=== PATIENT | female | born 1935 | race Two or more races ===

== ENCOUNTER 2019-09-28 03:21 | Inpatient (IN) | payer MEDICARE, OTHER ==
[2019-09-28] VITALS (13 sets, daily range): BP systolic 143–190; BP diastolic 40–122
[~2019-09-28] VITALS: Ht 152.4 cm; Wt 69.0 kg
[~2019-09-28 03:21] MED LIST: AMLO10TA4 PO; BENA20TA9 PO; DULO30CA2 PO; ESOM40CA PO; HYDR-4077 PO; METF500T PO; SITA50TA PO
--- NOTE | 2019-09-28 03:25 | NUR ---
PT BIBA AND SON TO THE ED C/O SOB. PT AAOX3, TACHYPNEIC, BILATERAL WHEEZING UPON AUSCULTATION NOTED, SATTING 89% ON RA, PLACED ON O2 4 L N/C. PT CONNECTED TO THE INSTRUCTIONAL WRITER AND POX
--- NOTE | 2019-09-28 03:25 | NUR ---
Note betty in EDM - 09/28/19 at 0402 by SANTOS PT BIBAON TO THE ED C/O SOB. PT AAOX3, TACHYPNEIC, BILATERAL WHEEZING UPON AUSCULTATION NOTED, SATTING 89% ON RA, PLACED ON O2 4 L N/C. PT CONNECTED TO THE UNIT COORDINATOR AND POX
--- NOTE | 2019-09-28 04:00 | NUR ---
BLOOD COLLECTED AND SENT TO LAB
[2019-09-28] MEDS ORDERED: ALBUTEROL FS 2.5 MG/3 ML VIAL.NEB ONE (04:15)
[2019-09-28] MEDS ORDERED: IPRATROPIUM NEB FS 0.5 MG/2.5 ML AMPUL.NEB ONE (04:15)
--- NOTE | 2019-09-28 04:20 | NUR ---
URINE COLLECTED AND SENT TO LAB
[2019-09-28] MEDS ORDERED: ALBUTEROL FS 2.5 MG/3 ML VIAL.NEB NEB ONE (04:30)
[2019-09-28] MEDS ORDERED: IPRATROPIUM NEB FS 0.5 MG/2.5 ML AMPUL.NEB NEB ONE (04:30)
--- NOTE | 2019-09-28 04:42 | NUR ---
CALLED [facility] FOR CXR RESULT READ
[2019-09-28 05:02] LABS: BASOPHILS % (AUTO) 0.8 % (0.0-2.0); EOSINOPHILS % (AUTO) 1.6 % (0.0-6.0); HEMATOCRIT 25 % (33-45); LYMPHOCYTES % (AUTO) 22.4 % (20.0-44.0); MEAN CORPUSCULAR HGB CONC 32 g/dl (31.0-36.0); MEAN CORPUSCULAR VOLUME 101 fL (82-100); MONOCYTES % (AUTO) 6.8 % (2.0-12.0); NEUTROPHILS % (AUTO) 68.4 % (43.0-81.0); PLATELET COUNT (AUTO) 226 /CMM (150-450); RED BLOOD CELL COUNT(AUTO) 2.47 MIL/uL (4.0-5.2); WHITE BLOOD COUNT (AUTO) 8.2 K/uL (4.3-11.0)
[2019-09-28 05:03] LABS: BASOPHILS # (AUTO) 0.1 /CMM (0.0-0.2); LYMPHOCYTES # (AUTO) 1.8 /CMM (0.8-4.8); MONOCYTES # (AUTO) 0.6 /CMM (0.1-1.30); NEUTROPHILS # (AUTO) 5.6 /CMM (1.8-8.9)
[2019-09-28 05:06] LABS: BILIRUBIN,URINE SMALL (NEGATIVE); BLOOD, URINE Negative Ery/uL (NEGATIVE); COLOR,URINE Yellow (YELLOW); KETONES,URINE 15 (NEGATIVE); LEUKOCYTE ESTERASE ,URINE Negative (NEGATIVE); NITRITE, URINE Negative (NEGATIVE); PROTEIN,URINE 30 mg/dl (NEGATIVE); UGLUCOSE Negative (NEGATIVE); UROBILINOGEN,URINE 0.2 EU/dL (0.2)
[2019-09-28 05:11] LABS: ALANINE AMINOTRANSFERASE 24 U/L (12-78); ALBUMIN 3.3 g/dL (3.4-5.0); ALKALINE PHOSPHATASE 168 U/L (46-116); ASPARTATE AMINOTRANSFERASE 26 U/L (15-37); BILIRUBIN,DIRECT 0.1 mg/dL (0.0-0.2); BILIRUBIN,TOTAL 0.3 mg/dL (0.2-1.0); CALCIUM, SERUM 8.3 mg/dL (8.5-10.1); CARBON DIOXIDE 19 mmol/L (21-32); CHLORIDE 105 mmol/L (98-107); CREATININE 2.6 mg/dL (0.6-1.3); GLUCOSE 162 mg/dL (74-106); SODIUM SERUM 134 mmol/L (136-145); TOTAL PROTEIN, SERUM 6.9 g/dL (6.4-8.2); UREA NITROGEN, BLOOD 58 mg/dL (7-18)
--- NOTE | 2019-09-28 05:13 | NUR ---
COVID SWAB COLLECTED AND SENT TO LAB
[2019-09-28 05:18] LABS: POTASSIUM 6.9 mmol/L (3.5-5.1)
[2019-09-28 05:36] LABS: APPEARANCE,URINE HAZY (CLEAR)
[2019-09-28] MEDS ORDERED: SODIUM BICARBONATE SYR 50 MEQ/50 ML DISP.SYRIN ONE (05:48)
[2019-09-28] MEDS ORDERED: CALCIUM CHLORIDE 1,000 MG/10 ML DISP.SYRIN ONE (05:48)
[2019-09-28] MEDS ORDERED: SODIUM POLYSTYRENE SULFONATE 15 G/60 ML BOTTLE ONE (05:48)
[2019-09-28] MEDS ORDERED: INSULIN REGULAR, HUMAN 100 UNIT/ML 10 ML VIAL ONE (05:48)
[2019-09-28 05:50] LABS: BACTERIA,URINE None seen /HPF (None Seen); RBC,URINE 0-2 /HPF (0-2); SQUAMOUS EPITHELIAL CELL,UR Few /HPF (None Seen); URINE AMORPHOUS URATE Moderate /HPF (None Seen); WBC,URINE 0-2 /HPF (0-3)
[2019-09-28] MEDS ORDERED: DEXTROSE 50%-WATER 50 ML DISP.SYRIN ONE (05:51)
[2019-09-28] MEDS ORDERED: FUROSEMIDE 40 MG/4 ML VIAL ONE (05:59)
[2019-09-28] MEDS ORDERED: FUROSEMIDE 20 MG/2 ML VIAL ONE (05:59)
[2019-09-28] MEDS ORDERED: INSULIN REGULAR, HUMAN 100 UNIT/ML 10 ML VIAL IV ONE (06:00)
[2019-09-28] MEDS ORDERED: CALCIUM CHLORIDE 1,000 MG/10 ML DISP.SYRIN IV ONE (06:00)
[2019-09-28] MEDS ORDERED: SODIUM BICARBONATE SYR 100 MEQ in IV D5W 1,000 ML IV ONE (06:00)
[2019-09-28] MEDS ORDERED: SODIUM POLYSTYRENE SULFONATE 15 G/60 ML BOTTLE PO ONE (06:00)
[2019-09-28] MEDS ORDERED: DEXTROSE 50%-WATER 50 ML DISP.SYRIN IV ONE (06:00)
--- NOTE | 2019-09-28 06:00 | NUR ---
PT WAS SEEN BY DR IGLESIA LEE
--- NOTE | 2019-09-28 06:14 | NUR ---
patient is changed into a clean gown. warm blankets given for comfort.
--- NOTE | 2019-09-28 06:19 | NUR ---
RT PT PLACED ON BIPAP W/ NOTED SETTING PER MD ORDERS. PT TOLERATING SETTING WELL. NO SOB OR DISTRESS NOTED. ALARMS SET AUDIBLE. AMBU BAG AT HOB. CONTINUE CURRENT CARE PLAN AND MONITOR FOR ANY CHANGES. Addendum: 09/28/19 at 0621 by AZ WALTER RT Amended: Links added.
[2019-09-28] MEDS ORDERED: FUROSEMIDE 20 MG/2 ML VIAL IV ONE (06:30)
--- NOTE | 2019-09-28 06:32 | NUR ---
BIPAP SETTINGS: RATE:14 bpm Fraction of Inspired Oxygen (FiO2): 40 % IPAP: 15 EPAP:5
--- NOTE | 2019-09-28 06:54 | NUR ---
BED ASSIGNMENT [id number]
--- NOTE | 2019-09-28 07:10 | NUR ---
ATTEMPTED TO GIVE REPORT, NURSE NOT AVAILABLE
[2019-09-28] MEDS ORDERED: BUMETANIDE INJ 6 MG in IV NS 0.9% 36 ML IV ONE (07:30)
[2019-09-28] MEDS ORDERED: ONDANSETRON HCL/PF 4 MG/2 ML VIAL IVP PRN (07:30)
[2019-09-28] MEDS ORDERED: PANTOPRAZOLE 40 MG TABLET.DR PO SCH (07:30)
[2019-09-28] MEDS ORDERED: ACETAMINOPHEN 325 MG TABLET PO PRN (07:30)
[2019-09-28] MEDS ORDERED: Z GUARD REMEDY 2 OZ OINT TP PRN (07:30)
[2019-09-28] MEDS ORDERED: ZOLPIDEM TARTRATE 5 MG TABLET PO PRN (07:30)
--- NOTE | 2019-09-28 07:43 | NUR ---
REPORT GIVEN TO SCOTT RIVAS
[2019-09-28] MEDS ORDERED: BENAZEPRIL HCL 20 MG TABLET PO SCH (09:00)
[2019-09-28] MEDS ORDERED: hydrALAZINE HCL 50 MG TABLET PO SCH (09:00)
[2019-09-28] MEDS: hydrALAZINE HCL 50 MG TABLET PO SCH ×4 (09:00→16:12)
[2019-09-28 09:29] LABS: ABG BASE EXCESS -7.4 mmol/L; ABG OXYGEN SATURATION 99.6 % (92.0-98.5); ABG PCO2 33.5 mmHg (35.0-45.0); ABG PH 7.339 (7.350-7.450); ABG PO2 310.1 mmHg (75.0-100.0); AaDO2 225.1 mmHg; COHb 0.3 % (0.5-1.5); MetHb 0.2 % (0.0-1.5); O2Hb 99.1 % (94.0-97.0); SITE, ABG Right Radial
[2019-09-28] MEDS: AMLODIPINE BESYLATE 10 MG TABLET PO SCH ×2 (09:31→16:11)
[2019-09-28] MEDS: LINAGLIPTIN 5 MG TABLET PO SCH (09:31)
[2019-09-28] MEDS: DULOXETINE HCL 30 MG CAPSULE.DR PO SCH (09:32)
[2019-09-28] MEDS: ENOXAPARIN SODIUM 30 MG/0.3 ML DISP.SYRIN SQ SCH (09:33)
[2019-09-28] MEDS: PANTOPRAZOLE 40 MG TABLET.DR PO SCH (09:36)
--- NOTE | 2019-09-28 09:53 | NUR ---
0730 HYDRALAZINE GIVEN LATE. PER PHARMACY, HOLD 0900 DOSE AND GIVE 1300 DOSE SCHEDULED.
--- NOTE | 2019-09-28 10:00 | NUR ---
INDUSTRIAL CONVEYOR BELT REPAIRER NOTED: PATIENT ARRIVED TO ICU AROUND 0800 THIS MORNING. PATIENT IS VERY CONFUSED BUT OPENS EYES TO VERBAL AND TACTILE STIMULI. ERITREAN SPEAKING, NEEDS FOREST SCIENCE PROFESSOR BUT ABLE TO FOLLOW SIMPLE COMMANDS. PATIENT INITIALLY CAME FROM HOME TO [facility] ER WITH C/O SOB AND UNABLE TO LIE FLAT. ARF AND ACUTE DIASTOLIC HF WAS THE ADMITTING DX FOR THIS PATIENT. PATIENT IS CURRENTLY ON A [id number], SOB NOTED, UNABLE TO LIE FLAT, CRACKLES NOTED ON LUNG BASES UPON AUSCULTATION. SR IIN THE 70S ON BEDSIDE MONITOR. PATIENT IS CURRENTLY HYPERTENSIVE, WILL REVIEW ORDERS FOR BP MEDICATION. #22 ON R/L HAND, C/D/I, FLUSHING WELL, NO SIGNS OF COMPLICATIONS NOTED. JIMENEZ DRAINING CLEAR YELLOW URINE. PATIENT IS CURRENTLY BED REST, BASELINE UNKNOWN D/T PATIENT BEING CONFUSED AND A POOR HISTORIAN. SKIN INTACT BESIDES BRUISING ON BUE, BEHING RIGHT CALF AND LL BACK, PICTURES TAKEN AND PLACED IN CHART. ALLERGIES AND CODE STATUS ORDERED ALONG WITH DIET. PATIENT IS COVID NEGATIVE. WILL REVIEW PLAN OF CARE FROM MD AND INITIATE INTERVENTIONS. SAFETY MEASURES IMPLEMENTED, BED IN LOWEST POSITION, LOCKED, SIDE RAILS UP 2, CALL LIGHT WITHIN REACH. WILL CONTINUE TO MONITOR PATIENT FOR CHANGES.
[2019-09-28] MEDS: IPRATROPIUM NEB FS 0.5 MG/2.5 ML AMPUL.NEB NEB SCH ×4 (11:33→23:25)
[2019-09-28 12:13] LABS: THYROID STIMULATING HORMONE 13.56 uIU/mL (0.358-3.74)
--- NOTE | 2019-09-28 18:11 | NUR ---
GAVE REPORT TO SCTOT BORRERO Addendum: 09/28/19 at 1841 by VIRGILIO SALMON RN PATIENT TRANSFERRED DOWN TO ROOM 324 AT 1818. NO SIGNS OF ACUTE DISTRESS NOTED.
--- NOTE | 2019-09-28 18:45 | NUR ---
PATIENT ARRIVED ON UNIT AT 1830, SHOWING NO SIGNS OF ACUTE DISTRESS, VITAL SIGNS 146/49, HR 107 O2 97% ON 4L NC, RR 24. IV LINES S/L IN THE RIGHT HAND #22G LEFT HAND #22G AND ROXI MIDLINE. PATIENT IS A/O X1, ONLY ANSWERS TO NAME. JIMENEZ CATHETER WAS EMPTIED IN ICU 2000MLS OUT. PATIENT WAS ON KAYEXALATE AND HAD 2 BOWEL MOVEMENTS PER PERSONNEL GENERALIST MANAGER EVELYN. TELE MONITOR IS SR 69 AT THIS TIME. SKIN ASSESSED AND SHOWS GENERALIZED BRUISING. BED IS IN LOWEST POSITION, SIDE RAILS X3 IN UPRIGHT POSITION, CALL LIGHT IS WITHIN REACH, FALL SAFETY AND ASPIRATION PRECAUTIONS ENFORCED. WILL ENDORSE TO GALLERY INTERN RN FOR XENIA.
--- NOTE | 2019-09-28 19:27 | NUR ---
RN NOTE urine specimen sent to lab.
--- NOTE | 2019-09-28 20:00 | NUR ---
RN NOTES RECEIVED PT.SLEEPING BUT AROUSABLE, SR ON TELE MONITOR HR-75, A/OX2, GRENADIAN SPEAKING, CALL LIGHT WITHIN REACH, SIDERAILSUPX2, CONTINUE TO MONITOR
[2019-09-29] VITALS: BP_SYST 138; BP_DIAS 47; BP_DIAS 57
[2019-09-29] MEDS: IPRATROPIUM NEB FS 0.5 MG/2.5 ML AMPUL.NEB NEB SCH ×6 (02:41→23:41)
--- NOTE | 2019-09-29 06:44 | NUR ---
RN NOTES SLEEPING BUT AROUSABLE, MORNING CARE RENDERED, NOT IN DISTRESS, NO PAIN NOTED, CALL LIGHT WITHIN REACH, SHILPAUPX2, PT. NEEDS ATTENDED
[2019-09-29 08:00] VITALS: BP 116/57
[2019-09-29 08:11] LABS: BASOPHILS # (AUTO) 0.1 /CMM (0.0-0.2); BASOPHILS % (AUTO) 0.9 % (0.0-2.0); HEMATOCRIT 27 % (33-45); HEMOGLOBIN 8.7 g/dL (11.5-14.8); LYMPHOCYTES # (AUTO) 1.1 /CMM (0.8-4.8); LYMPHOCYTES % (AUTO) 16.5 % (20.0-44.0); MEAN CORPUSCULAR HGB CONC 32 g/dl (31.0-36.0); MEAN CORPUSCULAR VOLUME 96 fL (82-100); MONOCYTES # (AUTO) 0.4 /CMM (0.1-1.30); MONOCYTES % (AUTO) 5.5 % (2.0-12.0); NEUTROPHILS % (AUTO) 73.1 % (43.0-81.0); PLATELET COUNT (AUTO) 265 /CMM (150-450); RED BLOOD CELL COUNT(AUTO) 2.81 MIL/uL (4.0-5.2); WHITE BLOOD COUNT (AUTO) 6.8 K/uL (4.3-11.0)
[2019-09-29 08:42] LABS: ABG BASE EXCESS 0.7 mmol/L; ABG OXYGEN SATURATION 92.2 % (92.0-98.5); ABG PCO2 40.7 mmHg (35.0-45.0); ABG PH 7.412 (7.350-7.450); ABG PO2 63.1 mmHg (75.0-100.0); AaDO2 117.4 mmHg; COHb 0.5 % (0.5-1.5); MetHb 0.3 % (0.0-1.5); O2Hb 91.5 % (94.0-97.0); SITE, ABG Right Radial
[2019-09-29 09:10] LABS: ALANINE AMINOTRANSFERASE 25 U/L (12-78); ALBUMIN 3.4 g/dL (3.4-5.0); ALKALINE PHOSPHATASE 141 U/L (46-116); ASPARTATE AMINOTRANSFERASE 18 U/L (15-37); BILIRUBIN,TOTAL 0.5 mg/dL (0.2-1.0); CALCIUM, SERUM 8.8 mg/dL (8.5-10.1); CARBON DIOXIDE 26 mmol/L (21-32); CHLORIDE 101 mmol/L (98-107); CREATININE 1.8 mg/dL (0.6-1.3); GLUCOSE 134 mg/dL (74-106); MAGNESIUM 2.4 mg/dL (1.8-2.4); PHOSPHORUS 5.6 mg/dL (2.5-4.9); POTASSIUM 4.7 mmol/L (3.5-5.1); SODIUM SERUM 137 mmol/L (136-145); TOTAL PROTEIN, SERUM 7.1 g/dL (6.4-8.2); UREA NITROGEN, BLOOD 45 mg/dL (7-18)
[2019-09-29 09:14] LABS: IRON, SERUM 17 ug/dl (50-175); TOTAL IRON BINDING CAPACITY 379 ug/dl (250-450)
[2019-09-29 09:19] LABS: CHOLESTEROL 186 mg/dL (<200); CREATINE KINASE, TOTAL 51 U/L (26-192); HDL CHOLESTEROL 54 mg/dL (40-60); LDL 118 mg/dL (0-99); THYROID STIMULATING HORMONE 10.106 uIU/mL (0.358-3.74); TRIGLYCERIDES 88 mg/dL (30-150)
[2019-09-29] MEDS: AMLODIPINE BESYLATE 10 MG TABLET PO SCH ×2 (09:36→17:22)
[2019-09-29] MEDS: DULOXETINE HCL 30 MG CAPSULE.DR PO SCH (09:36)
[2019-09-29] MEDS: hydrALAZINE HCL 50 MG TABLET PO SCH ×3 (09:37→17:21)
[2019-09-29] MEDS: LINAGLIPTIN 5 MG TABLET PO SCH (09:37)
[2019-09-29] MEDS: PANTOPRAZOLE 40 MG TABLET.DR PO SCH (09:37)
[2019-09-29] MEDS: ENOXAPARIN SODIUM 30 MG/0.3 ML DISP.SYRIN SQ SCH (09:41)
--- NOTE | 2019-09-29 09:47 | NUR ---
HELP DESK COORDINATOR OPENING NOTE Pt asleep in bed. A.O x2-3. Breath sounds even, clear, unlabored. Nasal cannula 2 l/min satting at 98%. No JVD. Pedal pulses 2+. Tele monitor sinus rhythm, heart rate 73. Skin warm, pink, dry, appropriate for ethnicity. Generalized bruising on right arm. IV site right hand 22g saline locked, patent, intact. IV site left hand 22g saline locked, patent, intact. ROXI midline site, no redness. No signs of infiltration. Robison catheter patent, intact. Urine output clear, yellow, no sediment. Bowel sounds normoactive in all quadrants. Abdomen soft, round, non-distended. Patient ate 75% of breakfast, tolerated well. Able to move extremities well. Bed in low position, wheels locked, side rails up x2, call light within reach.
[2019-09-29 10:56] VITALS: BP 146/57
[2019-09-29 16:00] VITALS: BP 122/50
--- NOTE | 2019-09-29 17:27 | NUR ---
FAMILY LAW ATTORNEY NOTE IV d/c left and right hand. Patient pulled out both IV.
--- NOTE | 2019-09-29 17:37 | NUR ---
KOHINOOR OPERATOR CLOSING NOTE Pt awake in bed. A/O x1, slightly confused. Able to follow commands. Breathing even, unlabored. Nasal cannula 4 l/min, respiratory rate 18. No signs of acute distress or SOB. Pulses 2+. Able to move extremities on command. ROXI midline site patent, intact. No redness or infiltration. Patient pulled out IV in left and right hand. FC patent, intact. Urine output clear, dark yellow, no sediment. Generalized bruising on arms noted. Bed in low position, wheels locked, side rails up x2, call light within reach.
--- NOTE | 2019-09-29 19:30 | NUR ---
RELIGION INSTRUCTOR OPENING PM NOTE BEDSIDE REPORT RECIEVED FROM SOY CHAVEZ. PT IN BED. BREATHING EVEN AND UNLABORED ON NC 4 l/min, RR OF 16. IN NO SIGNS OF ACUTE DISTRESS OR SOB. ROXI MIDLINE SITE PATENT INTACT. FLUSHED. NO S/S OF INFILTRATION. FC PRESENT DRAINING DARK YELLOW URINE. BED IN LOW LOCKED POSITION CALL LIGHT IN REACH BED ALARM ACTIVATED. WILL CONT TO MONITOR.
[2019-09-29 20:00] VITALS: BP 128/38
[2019-09-29 20:01] VITALS: BP 128/38
[2019-09-29] MEDS: HEPARIN SODIUM, PORCINE 5000 UNITS/1 ML VIAL SQ SCH (21:36)
[2019-09-30] VITALS (7 sets, daily range): BP systolic 122–137; BP diastolic 39–51
[2019-09-30] MEDS: IPRATROPIUM NEB FS 0.5 MG/2.5 ML AMPUL.NEB NEB SCH ×6 (04:01→23:33)
[2019-09-30 07:43] LABS: CALCIUM, SERUM 8.4 mg/dL (8.5-10.1); CARBON DIOXIDE 24 mmol/L (21-32); CHLORIDE 101 mmol/L (98-107); CREATININE 1.7 mg/dL (0.6-1.3); GLUCOSE 176 mg/dL (74-106); POTASSIUM 4.5 mmol/L (3.5-5.1); SODIUM SERUM 134 mmol/L (136-145); UREA NITROGEN, BLOOD 46 mg/dL (7-18)
[2019-09-30 07:55] LABS: BASOPHILS # (AUTO) 0.1 /CMM (0.0-0.2); BASOPHILS % (AUTO) 1.2 % (0.0-2.0); EOSINOPHILS % (AUTO) 3.1 % (0.0-6.0); HEMATOCRIT 27 % (33-45); HEMOGLOBIN 8.7 g/dL (11.5-14.8); LYMPHOCYTES # (AUTO) 1.7 /CMM (0.8-4.8); LYMPHOCYTES % (AUTO) 20.1 % (20.0-44.0); MEAN CORPUSCULAR HGB CONC 32 g/dl (31.0-36.0); MEAN CORPUSCULAR VOLUME 98 fL (82-100); MONOCYTES # (AUTO) 0.6 /CMM (0.1-1.30); MONOCYTES % (AUTO) 6.7 % (2.0-12.0); NEUTROPHILS # (AUTO) 5.8 /CMM (1.8-8.9); NEUTROPHILS % (AUTO) 68.9 % (43.0-81.0); PLATELET COUNT (AUTO) 264 /CMM (150-450); RED BLOOD CELL COUNT(AUTO) 2.76 MIL/uL (4.0-5.2); WHITE BLOOD COUNT (AUTO) 8.4 K/uL (4.3-11.0)
[2019-09-30] MEDS: DULOXETINE HCL 30 MG CAPSULE.DR PO SCH (08:19)
[2019-09-30] MEDS: PANTOPRAZOLE 40 MG TABLET.DR PO SCH (08:20)
[2019-09-30 08:56] LABS: CREATININE, URINE 92.9 MG/DL (30.0-125.0); URINE TOTAL PROTEIN 70.8 mg/dL (0-11.9)
[2019-09-30 09:14] LABS: APPEARANCE,URINE SL CLOUDY (CLEAR); BILIRUBIN,URINE NEGATIVE (NEGATIVE); BLOOD, URINE LARGE Ery/uL (NEGATIVE); KETONES,URINE NEGATIVE (NEGATIVE); LEUKOCYTE ESTERASE ,URINE TRACE (NEGATIVE); NITRITE, URINE NEGATIVE (NEGATIVE); PH,URINE 5.5 (5.0-8.0); UGLUCOSE NEGATIVE (NEGATIVE); UROBILINOGEN,URINE 0.2 EU/dL (0.2)
[2019-09-30] MEDS: LINAGLIPTIN 5 MG TABLET PO SCH (09:20)
[2019-09-30] MEDS: AMLODIPINE BESYLATE 10 MG TABLET PO SCH ×2 (09:20→17:30)
[2019-09-30] MEDS: hydrALAZINE HCL 50 MG TABLET PO SCH ×3 (09:20→17:30)
[2019-09-30] MEDS: HEPARIN SODIUM, PORCINE 5000 UNITS/1 ML VIAL SQ SCH ×2 (09:21→21:15)
[2019-09-30 10:36] LABS: RBC,URINE 81-100 /HPF (0-2)
[2019-09-30 10:38] LABS: BACTERIA,URINE Few /HPF (None Seen); SQUAMOUS EPITHELIAL CELL,UR Few /HPF (None Seen)
[2019-09-30 10:40] LABS: PROTEIN,URINE 100 mg/dl (NEGATIVE)
[2019-09-30 10:41] LABS: COLOR,URINE STRAW (YELLOW)
[2019-09-30 12:06] LABS: PTH, INTACT 61 pg/mL (15-65)
[2019-09-30] MEDS: FUROSEMIDE 40 MG TABLET PO SCH (14:19)
[2019-09-30] MEDS: POTASSIUM CHLORIDE 20 MEQ TAB.PRT.SR PO SCH (14:22)
--- NOTE | 2019-09-30 14:51 | NUR ---
DELAYED ADMINISTRATON OF HYDRALAZINE PILLS BECAUSE PT WAS RECEIVING P.T. EVAL TX
[2019-09-30] MEDS: SOD FERRIC GLUC 125 MG in IV NS 0.9% 100 ML IV SCH (15:07)
[2019-09-30 15:24] LABS: EOSINOPHIL,URINE None Seen
--- NOTE | 2019-09-30 19:52 | NUR ---
PT ON O2 3L/MIN VIA NC. O2 SAT 98%DENIES SOB OR DISCOMFORT.ABLE TO EAT DINNER BUT REFUSED TO EAT THE CHICKEN SAYING IT WAS HARD TO CHEW. WILL CONTINUE TO MONITOR.CALL LIGHT PLACED WITHIN REACH.
--- NOTE | 2019-10-01 | NUR ---
PATIENT OXYGENATION STATUS EVALUATED. PT TURNED TO TO 2LNC. AFTER A PERIOF DO 15 MINUTES. SPO2 RECHECKED PATIENT SAT AT 94. PT IN NO APPARENT RESP DISTRESS. WILL CONT TO TITRATE APPPROPRIATEL.
[2019-10-01] MEDS: IPRATROPIUM NEB FS 0.5 MG/2.5 ML AMPUL.NEB NEB SCH ×4 (03:46→16:16)
--- NOTE | 2019-10-01 06:47 | NUR ---
BUCKLE WIRE INSERTER OPENING PM NOTE BEDSIDE REPORT RECIEVED FROM JAIMIE CHAVEZ. PT IN BED. BREATHING EVEN AND UNLABORED ON NC 3 l/min, RR OF 16. IN NO SIGNS OF ACUTE DISTRESS OR SOB. ROXI MIDLINE SITE PATENT INTACT. FLUSHED. NO S/S OF INFILTRATION. FC PRESENT CLEAR YELLOW URINE. BED IN LOW LOCKED POSITION CALL LIGHT IN REACH BED ALARM ACTIVATED. WILL CONT TO MONITOR. Addendum: 10/01/19 at 0648 by GEMA PERALES RN CORRECT TIME WAS 09/30/19 AT 1915
[2019-10-01 08:00] VITALS: BP 141/43
--- NOTE | 2019-10-01 08:00 | NUR ---
WIND ENERGY PROJECT MANAGER OPENING NOTE Pt A.O X 3. Sami speaking. Breath sounds even, clear, unlabored. Nasal cannula 3 L/min sating at 98%. No JVD. Pedal pulses 2+. Tele monitor sinus rhythm, heart rate 60-70. Skin warm, pink, dry, appropriate for ethnicity. Generalized bruising on right arm. IV site right hand 22g saline locked, patent, intact. IV site left hand 22g saline locked, patent, intact. ROXI midline site, no redness. No signs of infiltration. Robison catheter patent, intact. Urine output clear, yellow, no sediment. Bowel sounds normoactive in all quadrants. Abdomen soft, round, non-distended. Patient ate breakfast, tolerated well. Able to move extremities well. Bed in low position, wheels locked, side rails up x2, call light within reach.
[2019-10-01] MEDS: PANTOPRAZOLE 40 MG TABLET.DR PO SCH (08:21)
[2019-10-01] MEDS: FUROSEMIDE 40 MG TABLET PO SCH (08:21)
[2019-10-01] MEDS: DULOXETINE HCL 30 MG CAPSULE.DR PO SCH (08:21)
[2019-10-01] MEDS: POTASSIUM CHLORIDE 20 MEQ TAB.PRT.SR PO SCH (08:21)
[2019-10-01] MEDS: LINAGLIPTIN 5 MG TABLET PO SCH (08:22)
[2019-10-01] MEDS: HEPARIN SODIUM, PORCINE 5000 UNITS/1 ML VIAL SQ SCH (08:23)
[2019-10-01] MEDS: hydrALAZINE HCL 50 MG TABLET PO SCH ×3 (08:30→17:16)
[2019-10-01] MEDS: AMLODIPINE BESYLATE 10 MG TABLET PO SCH ×2 (08:30→17:16)
[2019-10-01] MEDS: SOD FERRIC GLUC 125 MG in IV NS 0.9% 100 ML IV SCH (15:05)
[2019-10-01 16:00] VITALS: BP 132/49
[2019-10-01 17:16] VITALS: BP 132/49
--- NOTE | 2019-10-01 17:43 | NUR ---
DISCHARGED PT HOME VIA PRIVATE CAR WITH STABLE V/S.DENIES SOB AND DISCOMFORT PICKED BY HER SON,AMISH. JIMENEZ CATHETER REMOVED WITH NO HEMATURIA NOTED WITH 1100 ML YELLOW URINE OUTPUT IN THE URINARY DRAINAGE BAG .PT TOLERATED WELL ROXI MIDLINE REMOVED WITH NO BLEEDING NOTED.PT TOLERATED WELL.APPLIED PRESSURE DRSG TO ROXI MIDLINE SITE.DISCHARGE PAPERS AND TEACHING PROVIDED.
[2019-10-04 07:08] LABS: *SPE A/G RATIO 0.9 (0.7-1.7); *SPE ALPHA-1-GLOBULIN 0.3 g/dL (0.0-0.4); *SPE ALPHA-2-GLOBULIN 0.9 g/dL (0.4-1.0); *SPE BETA GLOBULIN 1.3 g/dL (0.7-1.3); *SPE GLOBULIN, TOTAL 3.4 g/dL (2.2-3.9); *SPE M-SPIKE Not Observed g/dL (Not Observed); *SPEGAMMA GLOBULIN 0.9 g/dL (0.4-1.8)
== END 2019-10-01 17:25 | disposition home or self-care (01) | DRG 291 ==
LOC: ER 03:23 → ICU 06:52 → TELE 18:44 → MED 09-30 14:55
PROVIDERS: ADMIT Nurse Practitioner Acute Care; ATTEND Hospitalist
PROC: 05H533Z Insertion of Infusion Device into Right Subclavian Vein, Percutaneous Approach (ICD-10-PCS; principal; 2019-09-28)
PROC: B546ZZA Ultrasonography of Right Subclavian Vein, Guidance (ICD-10-PCS; 2019-09-28)
DX: I13.0 Hypertensive heart and chronic kidney disease with heart failure and stage 1 through stage 4 chronic kidney disease, or unspecified chronic kidney disease (principal); J96.01 Acute respiratory failure with hypoxia; N17.0 Acute kidney failure with tubular necrosis; I50.33 Acute on chronic diastolic (congestive) heart failure; E87.2 Acidosis; E87.1 Hypo-osmolality and hyponatremia; D68.69 Other thrombophilia; E87.5 Hyperkalemia; D63.8 Anemia in other chronic diseases classified elsewhere; E11.22 Type 2 diabetes mellitus with diabetic chronic kidney disease; E78.5 Hyperlipidemia, unspecified; F32.9 Major depressive disorder, single episode, unspecified; K21.9 Gastro-esophageal reflux disease without esophagitis; N18.9 Chronic kidney disease, unspecified; E66.9 Obesity, unspecified; Z79.84 Long term (current) use of oral hypoglycemic drugs; D63.1 Anemia in chronic kidney disease; Z68.29 Body mass index [BMI] 29.0-29.9, adult; D50.9 Iron deficiency anemia, unspecified; N27.0 Small kidney, unilateral
CPT/HCPCS: 36410; 36415; 36600; 71045-TC; 76770-TC; 80048-TC; 80053-TC; 80061-TC; 80076-TC; 81000-TC; 82550-TC; 82570-TC; 82728-TC; 82803-TC; 82962-TC; 83540-TC; 83605-TC; 83735-TC; 83880; 83970; 84100-TC; 84155; 84155-TC; 84165; 84300-TC; 84439-TC; 84443-TC; 84484-TC; 85025-TC; 85730-TC; 87040-TC; 87086-TC; 93307-TC; 94799-TC; 97116-TC; 97530-TC; G0378; J1644; J1650; J1815; J1940; J2916; J3490; J7030; J7070